=== PATIENT | male | born 1935 | race Caucasian/White ===

== ENCOUNTER 2024-04-18 14:56 | Emergency (ER) | payer MEDICARE ==
[~2024-04-18] VITALS: Ht 182.9 cm; Wt 88.5 kg
[2024-04-18 15:39] LABS: BASOPHILS # (AUTO) 0.05 K/uL (0.00-0.20); BASOPHILS % (AUTO) 0.2 % (0.0-5.0); EOSINOPHILS # (AUTO) 0.01 K/uL (0.00-0.70); HEMATOCRIT 34.6 % (42-54); IMMATURE GRANULOCYTE ABSOLUTE 0.15 K/uL (0-1); LYMPHOCYTES # (AUTO) 0.5 K/uL (1.0-4.8); LYMPHOCYTES % (AUTO) 2.2 % (21.0-51.0); MEAN CORPUSCULAR HGB CONC 35.5 g/dL (32.0-36.0); MEAN CORPUSCULAR VOLUME 92.8 fL (79-99); MONOCYTES # (AUTO) 0.8 K/uL (0.1-1.0); MONOCYTES % (AUTO) 3.5 % (3.0-13.0); NEUTROPHILS # (AUTO) 21.4 K/uL (1.8-7.7); NEUTROPHILS % (AUTO) 93.4 % (40.0-77.0); PLATELET COUNT (AUTO) 176 K/uL (130-400); RED BLOOD CELL COUNT(AUTO) 3.73 MIL/uL (4.50-6.20); RED CELL DISTRIBUTION WIDTH 13.1 % (11.0-15.5)
[2024-04-18] MEDS: 0.9%NACL 1000ML 1,000 ML IV ONE (15:40)
--- NOTE | 2024-04-18 15:41 | HMCIMG ---
PORTABLE CHEST RADIOGRAPH INDICATION: WEAKNESS COMPARISON: 05/10/2004 FINDINGS: radiation monitor leads overlie the field of view. Shallow inspiration. Heart size is normal. The pulmonary vascularity and yemi appear normal. No abnormal pulmonary parenchymal opacity or consolidation identified. No significant pleural effusion noted. No pneumothorax detected. IMPRESSION: Shallow inspiration without radiographic evidence for any acute cardiopulmonary process.
--- NOTE | 2024-04-18 15:44 | EKG ---
[facility] Test Date: 2024-04-18 Test Time: 15:36:59 Pat Name: NORMAN CAICEDO Department: ED Room: Gender: Flight Instructor: [id number] : 1935 Requested By: LINA WOODS Order Number: [id number] Reading MD: Alvin Mclaughlin Measurements Intervals [place] Rate: 76 P: -27 CA: 255 QRS: -3 QRSD: 92 T: 37 QT: 405 QTc: 454 Interpretive Statements Sinus rhythm Prolonged CA interval No previous ECG available for comparison Electronically Signed On 04-19-2024 12:02:03 BLENDING TANK HELPER by Alvin Mclaughlin Please click the below link to view image of tracing.
--- NOTE | 2024-04-18 15:48 | ERN ---
General Chief Complaint: Weakness Stated Complaint: WEAKNESS Time Seen by MD: 15:08 Source: patient History of Present Illness Initial Comments PATIENT IS A AN 89-YEAR-OLD MALE COMING IN TO BE EVALUATED FOR GENERALIZED BODY WEAKNESS COUGH. PATIENT STATES THAT HE HAS BEEN HAVING THIS WEAKNESS SINCE YESTERDAY. NO FEVER OR CHILLS. Allergies: Coded Allergies: No Known Drug Allergies (Unverified Allergy, Unknown, HIVES, 04/18/24) Home Meds Reported Medications Levothyroxine Sodium (Levothyroxine Sodium) 50 Mcg Tablet, 0.5 TAB PO QTUTHSA for 30 Days, #30 TAB 0 Refills 04/19/24 Levothyroxine Sodium (Levothyroxine) 50 Mcg Capsule, 1 CAP PO [id number] for 30 Days, #30 CAP 0 Refills 04/19/24 Flecainide Acetate (Flecainide Acetate) 100 Mg Tablet, 0.5 TAB PO BID for 30 Days, #60 TAB 0 Refills 04/19/24 Metoprolol Succinate (Metoprolol Succinate) 25 Mg Tab.er.24h, 0.5 TAB PO DAILY for 30 Days, #30 TAB 0 Refills 04/19/24 Lorazepam (Ativan) 0.5 Mg Tablet, 1 TAB PO [id number] PRN for anxiety for 30 Days, #60 TAB 0 Refills 04/19/24 Amlodipine Besylate (Amlodipine Besylate) 10 Mg Tablet, 1 TAB PO DAILY for 30 Days, #30 TAB 0 Refills 04/19/24 Sertraline HCl (Sertraline HCl) 25 Mg Tablet, 1 TAB PO DAILY for 30 Days, #30 TAB 0 Refills 04/19/24 Past Medical History Past Medical History: A-Fib, CAD, Diabetes-Type II, High Cholesterol, Hypertension Past Surgical History: Other Surgical History Other: L HIP REPLACEMENT ROS Dictation CONSTITUTIONAL: NO CHILLS, NO FEVER, NO WEAKNESS, NO DIAPHORESIS, NO MALAISE. HEAD/FACE: NO SIGNS OF TRAUMA. EENT: NO EYE PAIN, NO BLURRED VISION, NO TEARING, NO DOUBLE VISION, NO EAR PAIN, NO EAR DISCHARGE, NO NOSE PAIN, NO NASAL CONGESTION, NO THROAT PAIN, NO THROAT SWELLING, NO MOUTH PAIN. RESPIRATORY: NO COUGH, NO ORTHOPNEA, NO SOB, NO STRIDOR, NO WHEEZING. CARDIOVASCULAR: NO CHEST PAIN, NO EDEMA, NO PALPITATIONS, NO SYNCOPE. GASTROINTESTINAL/ABDOMINAL: NO ABDOMINAL PAIN, NO CONSTIPATION, NO DIARRHEA, NO NAUSEA, NO VOMITING. GENITOURINARY: NO ABNORMAL DISCHARGE, NO DYSURIA, NO FREQUENT URINATION, NO HEMATURIA. NO COMPLAINTS OF PAIN IN THE GENITALS. MUSCULOSKELETAL: NO BACK PAIN, NO GOUT, NO JOINT PAIN, NO JOINT SWELLING, NO MUSCLE PAIN, NO MUSCLE STIFFNESS, NO NECK PAIN. INTEGUMENTARY: NO CHANGE IN COLOR, NO CHANGE IN HAIR/NAILS, NO DRYNESS, NO LESION, NO LUMPS, NO RASH. NEUROLOGICAL/PSYCH: NO ANXIETY, NOT DEPRESSED, NO EMOTIONAL PROBLEM, NO HEADACHE, NO NUMBNESS, NO PRE-EXISTING DEFICIT, NO HISTORY OF SEIZURES, NO TREMORS, NO WEAKNESS. HEMATOLOGIC/LYMPHATIC: NOT ANEMIC, NO HISTORY OF BLOOD CLOTS, NO APPARENT BLEEDING, NO BRUISING, GLANDS NOT SWOLLEN. ALL SYSTEMS NEGATIVE, EXCEPT NOTED. Physical Exam Physical Exam Dictation VITAL SIGNS: REVIEWED. GENERAL APPEARANCE: ALERT, ORIENTED X3, NO ACUTE DISTRESS, OBESE. HEAD AND FACE: NON-TRAUMATIC. EYES: PERRL, PINK CONJUNCTIVAS, EYELID NO TRAUMA, ANTERIOR CHAMBER CLEAR. EARS: PINNAS INTACT AND NO SIGNS OF TRAUMA OR ERYTHEMA. EAR CANALS CLEAR AND NO DISCHARGE. TMS NO ERYTHEMA. NOSE: NO DISCHARGE, NO BLEEDING. OROPHARYNX: MOUTH NORMAL, TEETH NO CARIES, TONGUE PINK. PHARYNX CLEAR, NO ERYTHEMA. TONSILS NO EXUDATES, NO ABSCESSES NOTED. MUCOUS MEMBRANE MOIST. NECK: SUPPLE, NON-TENDER, NO THYROMEGALY, NO MASSES, NO JVD, NO BRUITS. BREAST: DEFERRED. CHEST: NO TENDERNESS, NO CREPITUS, NO PARADOXICAL MOVEMENT, NO RETRACTIONS. LUNGS: CLEAR, WELL-VENTILATED, SYMMETRIC, NO RALES, NO WHEEZING, NO RHONCHI, NO STRIDOR, GOOD BREATH SOUNDS BILATERALLY. HEART: REGULAR RATE, REGULAR RHYTHM, NO MURMUR, NO GALLOPS. VASCULAR: NO PERIPHERAL EDEMA. ABDOMEN: SOFT, POSITIVE BOWEL SOUNDS, NONDISTENDED, NO GUARDING, NONTENDER, NO REBOUND, NO MASSES NO HEPATOMEGALY, NO SPLENOMEGALY, NO PATEL'S SIGN, NO HERNIAS. RECTAL: DEFERRED. GENITAL: DEFERRED. NEUROLOGICAL: NORMAL SPEECH, GROSS MOTOR FUNCTION INTACT, GROSS SENSORY FUNCTION INTACT. MUSCULOSKELETAL: NECK NONTENDER, FULL RANGE OF MOTION, BACK NONTENDER, FULL RANGE OF MOTION. EXTREMITIES: NONTENDER, FULL RANGE OF MOTION. SKIN: COLOR PINK, DRY, NO TURGOR, NO RASH, NO LACERATIONS, NO ABRASIONS, NO CONTUSIONS. LYMPHATICS: DEFERRED. Results Laboratory and Microbiology Lab and Micro Result Laboratory Tests Test 04/18/24 15:31 04/18/24 15:40 04/18/24 17:30 04/18/24 17:36 White Blood Count 23.0 K/uL (4.8-10.8) H Red Blood Count 3.73 MIL/uL (4.50-6.20) L Hemoglobin 12.3 g/dL (14.0-18.0) L Hematocrit 34.6 % (42-54) L Mean Corpuscular Volume 92.8 fL (79-99) Mean Corpuscular Hemoglobin 33.0 pg (27.0-33.0) Mean Corpuscular Hemoglobin Concent 35.5 g/dL (32.0-36.0) Red Cell Distribution Width 13.1 % (11.0-15.5) Platelet Count 176 K/uL (130-400) Mean Platelet Volume 8.5 fL (7.5-10.5) Immature Granulocyte % (Auto) 0.7 % (0-1) Neutrophils (%) (Auto) 93.4 % (40.0-77.0) H Lymphocytes (%) (Auto) 2.2 % (21.0-51.0) L Monocytes (%) (Auto) 3.5 % (3.0-13.0) Eosinophils (%) (Auto) 0.0 % (0.0-8.0) Basophils (%) (Auto) 0.2 % (0.0-5.0) Neutrophils # (Auto) 21.4 K/uL (1.8-7.7) H Lymphocytes # (Auto) 0.5 K/uL (1.0-4.8) L Monocytes # (Auto) 0.8 K/uL (0.1-1.0) Eosinophils # (Auto) 0.01 K/uL (0.00-0.70) Basophils # (Auto) 0.05 K/uL (0.00-0.20) Absolute Immature Granulocyte (auto 0.15 K/uL (0-1) Nucleated Red Blood Cells 0.0 % (0.0-0.19) White Cell Morphology Comment See comments Erythrocyte Sedimentation Rate 22 MM/HR (0-20) H Prothrombin Time 18.1 SEC (9.6-11.6) H Prothromb Time International Ratio 1.81 (0.85-1.15) H Activated Partial Thromboplast Time 41.9 SEC (26.3-35.5) H Sodium Level 126 mmol/L (136-145) L Potassium Level 3.8 mmol/L (3.5-5.1) Chloride Level 93 mmol/L (101-111) L Carbon Dioxide Level 26 mmol/L (21-32) Blood Urea Nitrogen 15 mg/dL (7-18) Creatinine 1.0 mg/dL (0.5-1.3) Glomerular Filtration Rate Calc 72 mL/min (>90) Random Glucose 123 mg/dL (70-105) H Total Calcium 8.1 mg/dL (8.5-10.1) L Magnesium Level 1.50 mg/dL (1.80-2.40) L Total Creatine Kinase 97 U/L (21-232) Troponin I High Sensitivity 12.1 ng/L (4-75) C-Reactive Protein, Quantitative 88.90 mg/L (0.5-3.0) H B-Type Natriuretic Peptide 646 pg/mL (0-100) H Influenza Type A Antigen Negative For Type A Influenza Type B Antigen Negative For Type B SARS-CoV-2, RNA, NAAT NEGATIVE SARS CoV-2 Urine Color YELLOW (YELLOW) Urine Appearance CLEAR (CLEAR) Urine pH 6.0 (5.0-8.0) Urine Specific Crane 1.021 (1.001-1.031) Urine Protein 10 mg/dL (NEGATIVE) H Urine Glucose (UA) NEGATIVE mg/dL (NEGATIVE) Urine Ketones NEGATIVE mg/dL (NEGATIVE) Urine Occult Blood NEGATIVE (NEGATIVE) Urine Nitrate NEGATIVE (NEGATIVE) Urine Bilirubin NEGATIVE mg/dL (NEGATIVE) Urine Urobilinogen 3 mg/dL (0.2-1.0) H Urine Leukocyte Esterase NEGATIVE Jesus/uL Urine RBC 2-5 /HPF (0-1) H Urine WBC 2-5 /HPF (0-1) H Urine Squamous Epithelial Cells RARE /HPF (0-2) Urine Bacteria RARE /HPF (None Seen) Lactic Acid Level 1.5 mmol/L (0.8-2.5) Test 04/19/24 07:21 04/20/24 09:07 White Blood Count 15.9 K/uL (4.8-10.8) #H Red Blood Count 3.46 MIL/uL (4.50-6.20) L Hemoglobin 11.4 g/dL (14.0-18.0) L Hematocrit 33.0 % (42-54) L Mean Corpuscular Volume 95.4 fL (79-99) Mean Corpuscular Hemoglobin 32.9 pg (27.0-33.0) Mean Corpuscular Hemoglobin Concent 34.5 g/dL (32.0-36.0) Red Cell Distribution Width 13.7 % (11.0-15.5) Platelet Count 159 K/uL (130-400) Mean Platelet Volume 8.5 fL (7.5-10.5) Immature Granulocyte % (Auto) 0.5 % (0-1) Neutrophils (%) (Auto) 88.4 % (40.0-77.0) H Lymphocytes (%) (Auto) 5.7 % (21.0-51.0) L Monocytes (%) (Auto) 5.1 % (3.0-13.0) Eosinophils (%) (Auto) 0.0 % (0.0-8.0) Basophils (%) (Auto) 0.3 % (0.0-5.0) Neutrophils # (Auto) 14.1 K/uL (1.8-7.7) H Lymphocytes # (Auto) 0.9 K/uL (1.0-4.8) L Monocytes # (Auto) 0.8 K/uL (0.1-1.0) Eosinophils # (Auto) 0.00 K/uL (0.00-0.70) Basophils # (Auto) 0.04 K/uL (0.00-0.20) Absolute Immature Granulocyte (auto 0.08 K/uL (0-1) Nucleated Red Blood Cells 0.0 % (0.0-0.19) Sodium Level 129 mmol/L (136-145) L Potassium Level 3.5 mmol/L (3.5-5.1) Chloride Level 99 mmol/L (101-111) L Carbon Dioxide Level 24 mmol/L (21-32) Blood Urea Nitrogen 17 mg/dL (7-18) Creatinine 0.8 mg/dL (0.5-1.3) Glomerular Filtration Rate Calc 85 mL/min (>90) Random Glucose 113 mg/dL (70-105) H Total Calcium 7.5 mg/dL (8.5-10.1) L Magnesium Level 1.70 mg/dL (1.80-2.40) L Vancomycin Level Trough 14.6 UG/ML (10.0-20.0) Labs Reviewed?: Yes EKG/XRAY/US/CT/MRI EKG Comment 04/19/2019 TIME 1:59 P.M. VENTRICULAR RATE [address] WAVE ELEVATION OR DEPRESSION CT Scan Comment PATIENT: NORMAN CAICEDO MR#: [id number] : 1935 SEX: M AGE: 89 LOCATION: [facility] ORDER 39 STATUS: REG REPORT#: [id number] SERVICE 37 REASON: Left hip post op abscess ORDERING PHYSICIAN: PHILLIP LI MD PROCEDURE: PELVIS WO - CT PELVIS W/O CONTRAST CT PELVIS W/O CONTRAST HISTORY: Left hip post op abscess TECHNIQUE: CT pelvis was performed without contrast. Coronal and sagittal reformats were obtained. CT was performed with one or more of the following dose reduction techniques: Automated exposure control, adjustment of the mA and/or kV according to the patient's size, or use of the iterative reconstruction technique. FINDINGS: This study is markedly degraded due to streak artifact from the left hip prosthesis. No displaced fracture or dislocation is seen. Left hip prosthesis in anatomic alignment. There is diffuse soft tissue swelling surrounding the left hip. No definite fluid collection is identified. There is no soft tissue gas. Correlate clinically. IMPRESSION: This study is markedly degraded due to streak artifact from the left hip prosthesis. No acute displaced fracture or dislocation is seen. Left hip prosthesis in anatomic alignment. There is diffuse soft tissue swelling surrounding the left hip. No definite fluid collection is identified. There is no soft tissue gas. Correlate clinically. DICTATED BY: FINA WRIGHT MD DATE: 04/18/242031 ELECTRONICALLY SIGNED BY: FINA WRIGHT MD DATE: 04/18/242035 MDM MDM: DIFFERENTIAL DIAGNOSIS: TAKE JOINT, PROSTHESIS RATIONALE: TESTS CONSIDERED AND ORDERED SECONDARY TO SHARED DECISION MAKING INCLUDE: PREVIOUS OUTSIDE RECORDS REVIEWED: OLD ER VISITS. RISK OF COMPLICATION AND/OR MORBIDITY OR MORTALITY OF PATIENT MANAGEMENT: NONE MEDICATIONS-PER MEDICATION RECONCILIATION NEED FOR HOSPITALIZATION: PATIENT DOES MEET CRITERIA FOR HOSPITALIZATION. NEED FOR EMERGENCY MAJOR/MINOR SURGERY: NO THERE ARE NO SOCIAL CONCERNS WITH THIS PATIENT. PRESCRIPTION DRUG MANAGEMENT PRESCRIPTIONS WILL INCLUDE SYMPTOMATIC CARE PATIENT'S PRIOR EXTERNAL MEDICAL RECORDS FROM OTHER ER VISITS WERE REVIEWED BY ME INDICATED. PRIOR TESTING AND RESULTS FROM PREVIOUS VISITS WERE REVIEWED. PRIOR TESTS WERE TAKEN INTO ACCOUNT WITH MEDICAL DECISION MAKING AND RESOURCE UTILIZATION, INDEPENDENT HISTORIAN/HISTORIANS WERE USED TO OBTAIN COMPLETE MEDICAL HISTORY. I INDEPENDENTLY INTERPRETED THE TEST THAT WERE PERFORMED, RESULTS WERE REVIEWED BY ME AND CONSIDERED FINDINGS ON RADIOLOGY IF ORDERED. MEDICAL MANAGEMENT AND EXAMINATION INTERPRETATION DISCUSSIONS WERE HAD BY ME WITH OTHER QUALIFIED HEALTHCARE PROFESSIONALS INDICATED FOR THE PATIENT'S CARE. PATIENT IS A AN 89-YEAR-OLD GENTLEMAN COMING IN TO BE EVALUATED FOR MULTIPLE COMPLAINTS. PATIENT STATES THAT HE DID HAVE LEFT HIP PAIN HE HAD SURGERY IN [facility]. PER PATIENT HE HAS BEEN HAVING SOME HIP DISCOMFORT FOR A COUPLE OF DAYS SHE WAS FOR FURTHER EVALUATION LABORATORY WORKUP POSITIVE FOR SEPSIS. WHITE BLOOD CELL COUNT ELEVATED. C-REACTIVE PROTEIN ELEVATED. SPOKE TO DR. RENEE THE ON-CALL LINEN WORKER HE STATES HE CAN NOT OPERATE ON THIS TYPE OF PATIENT AND STATES IT WAS BEST TO TRANSFER HIM OUT. DR. RENEE IS ALSO [facility] SO STATES THAT WE CAN NOT TRANSFER HIM THERE THE RESULT WILL BE THE SAME. ED Course Orders Procedure Category Date Status Time Cbc With Differential LAB 04/18/24 Complete 15:17 Prothrombin Time With LAB 04/18/24 Complete INR 15:17 B-Type Natriuretic LAB 04/18/24 Complete Peptide 15:17 Chest 1vw RAD 04/18/24 Resulted 15:17 12 Lead Ekg Tracing- EKG 04/18/24 Resulted Technical 15:17 0.9%Nacl 1000ml (Ns PHA 04/18/24 Complete 1000ml) 15:30 Magnesium LAB 04/18/24 Complete 15:17 Urinalysis Profile LAB 04/18/24 Complete 15:17 Partial LAB 04/18/24 Complete Thromboplastin Time 15:17 Basic Metabolic Panel LAB 04/18/24 Complete 15:17 Covid Rna Naat LAB 04/18/24 Complete 15:17 Influenza Type A & B, LAB 04/18/24 Complete Rapid 15:17 Cardiac Panel LAB 04/18/24 Complete 15:31 Blood Cult YUVAL 04/18/24 In Process 16:52 Culture Urine YUVAL 04/18/24 Complete 16:52 0.9%Nacl 1000ml (Ns PHA 04/18/24 Complete 1000ml) 17:00 Lactic Acid LAB 04/18/24 Complete 16:52 Ceftriaxone 1g Vial PHA 04/18/24 Complete (Rocephine 1g Inj) 17:00 Acetaminophen 325 Tab PHA 04/18/24 Complete (Tylenol 325mg Tab 18:30 Acetaminophen 325 Tab PHA 04/18/24 Complete (Tylenol 325mg Tab 18:12 Hip Unilat 2-3vw Left RAD 04/18/24 Resulted 18:12 Vancomycin Protocol PHA 04/18/24 Complete (Vancomycin Protocol 18:30 Vancomycin 1g/250ml PHA 04/18/24 Complete Kit (Vancomycin 1g/2 18:30 Erythrocyte LAB 04/18/24 Complete Sedimentation Rate 18:14 Crp Quantitative LAB 04/18/24 Complete 18:14 Vancomycin Trough LAB 04/20/24 Complete 08:00 Vancomycin 500mg+Ns PHA 04/19/24 Complete 100ml (Vancomycin 50 09:00 Ct Pelvis W/O Contrast CT 04/18/24 Resulted 19:38 Ibuprofen 600 Mg PHA 04/18/24 Complete Tablet (Motrin) 20:30 0.9% Nacl 500ml PHA 04/19/24 Complete Iv.Soln (Ns 500ml 01:30 Enoxaparin Sodium 100 PHA 04/19/24 Complete Mg/1 Ml (Lovenox) 02:00 Cbc With Differential LAB 04/19/24 Complete 07:00 Basic Metabolic Panel LAB 04/19/24 Complete 07:00 Magnesium LAB 04/19/24 Complete 07:00 Zolpidem Tartrate 5 PHA 04/20/24 Complete Mg Tab (Ambien) 00:30 Current Medications Medications (Trade) Dose Ordered Sig/Greg Route PRN Reason Start Time Stop Time Status Last Admin Dose Admin Zolpidem Tartrate (AmbIEN) 10 mg ONCE ONCE PO 04/20/24 00:30 04/20/24 00:31 DC 04/20/24 00:51 Vital Signs Date Time Temp Pulse Resp B/P (MAP) Pulse Ox O2 Delivery O2 Flow Rate FiO2 04/20/24 08:42 98.8 76 17 122/77 93 Room Air* 0 04/20/24 06:31 98.8 72 18 111/55 95 Room Air* 0 04/20/24 03:24 68 18 115/53 94 Room Air* 0 04/19/24 23:08 98.8 64 20 122/58 96 Room Air* 0 04/19/24 20:05 98.6 83 20 112/52 96 Room Air* 0 04/19/24 18:52 98.1 90 20 110/50 96 Room Air* 0 04/19/24 17:41 98.1 88 20 108/49 95 Room Air* 0 04/19/24 15:13 98.2 88 20 121/57 95 Room Air* 0 04/19/24 10:25 98.1 60 16 96 Room Air* 0 04/19/24 06:24 57 16 107/57 94 Room Air* 0 04/19/24 05:45 98.1 56 18 105/55 94 Room Air* 0 04/19/24 04:32 58 16 97/45 96 Room Air* 0 04/19/24 03:02 55 16 92/50 94 Room Air* 0 04/19/24 02:25 97.2 56 18 91/49 94 Room Air* 0 04/19/24 00:56 58 18 86/47 94 Room Air* 0 04/19/24 00:12 99.0 56 18 95/50 Room Air* 0 04/18/24 20:37 101.5 04/18/24 20:18 101.5 70 20 100/41 92 Room Air* 0 04/18/24 18:13 99.7 78 18 115/51 95 Room Air* 0 04/18/24 16:57 98.2 70 18 102/51 96 Room Air* 0 04/18/24 14:59 79 18 102/48 96 Room Air 0 04/18/2024 7:00 p.m. patient was signed out to me by a.m. physician. I independently evaluated patient 89-year-old male who is a winter [place], came into the emergency room complaining of generalized weakness and left hip pain. Initial presentation was quite innocuous with normal temperatures blood pressure was 102/51 and labs and workup was essentially significant for a leukocytosis and septic picture lactate was 1.5. BNP 7 was significant for a sodium of 126 BUN and creatinine are 15 and 1.0. CRP was 88.9 and magnesium was 1.5. Urinalysis was unremarkable and with a suspicion for left hip septic arthritis due to ongoing pain and redness and local erythema, the a.m. physician has initiated ceftriaxone. Left trochanteric area is tender to deep palpation and it is definitely swollen and warm to touch. His chronic medical problems include coronary artery disease, diabetes mellitus, hypercholesterolemia, hypertension, atrial fibrillation and history of left hip replacement a few months ago in [place]. Transfer to a facility with orthopedic surgeons comfortable with postop septic arthritis is been pursued. mixing place supervisor is making efforts. I requested a CT scan of the pelvis with focus on the left hip area to better evaluate if there is any abscess. CT scan revealed soft tissue swelling around the left hip but no obvious discernible fluid collection. Patient is currently on antibiotics and pain medications. 3:19 a.m. assisted living housekeeper informed that 9 facilities in the [place] have been approached and are unable to take the patient either because they are at full capacity or are unable to accommodate him. mixing place supervisor is attempting to pursue facility in [place] 04/19/2024 7:00 p.m.-all day this morning efforts to dispo the patient have been in progress and patient has not been accepted by any facility for management of complicated left hip septic arthritis. He is on Rocephin and vancomycin and pain medications mixing place supervisor informed me that transfer initiated back to his hometown and there is no likely possibility of him going anywhere if any until Sunday but patient is still on waiting list without any confirmation of bed availability or accepting physician. Patient remained in the ER and received the IV antibiotic therapy and pain management. Family decided to take him back to [facility] where he had his surgery done and they made arrangements on their own and did not want to wait until an official transfer arrangements could be done. Patient received the last antibiotic dose before leaving. Patient was alert awake ambulatory. DX & DISP Disposition: Discharge Departure Impression: Primary Impression: Septic joint Additional Impressions: Sepsis, History of total left hip replacement Condition: Stable Additional Instructions: The patient has been informed about all the diagnostic tests and procedures carried out in the emergency room today and has confirmed understanding of the results. Patient will be transferred to a facility that provides a higher level of care since such services are not accessible locally or within our immediate community. The patient is alert oriented and not experiencing any acute distress. There are no signs of sepsis and patient's hemodynamic status is stable at the moment. Medically, the patient is considered stable for transfer Referrals: SELF,REFERRAL (PCP) LINA WOODS MD Apr 18, 2024 15:48 PHILLIP LI MD Apr 19, 2024 01:06
[2024-04-18 16:11] LABS: B-TYPE NATRIURETIC PEPTIDE 646 pg/mL (0-100)
[2024-04-18 16:12] LABS: POTASSIUM 3.8 mmol/L (3.5-5.1)
[2024-04-18 16:12] LABS: SARS-CoV-2, RNA, NAAT NEGATIVE SARS CoV-2 (NEGATIVE)
[2024-04-18 16:15] LABS: INFLUENZA TYPE A Negative For Type A (NEGATIVE); INFLUENZA TYPE B Negative For Type B (NEGATIVE)
[2024-04-18 16:22] LABS: MAGNESIUM 1.5 mg/dL (1.80-2.40)
[2024-04-18 16:39] LABS: INR 1.81 (0.85-1.15); PROTHROMBIN TIME 18.1 SEC (9.6-11.6)
[2024-04-18 16:41] LABS: PARTIAL THROMBOPLASTIN TIME 41.9 SEC (26.3-35.5)
[2024-04-18] MEDS: cefTRIAXone 1G VIAL IVPB SCH (17:45)
[2024-04-18] MEDS: [UNRECOGNIZED DRUG - OTHER] IV SCH (17:45)
[2024-04-18 17:52] LABS: APPEARANCE,URINE CLEAR (CLEAR); BILIRUBIN,URINE NEGATIVE (NEGATIVE); COLOR,URINE YELLOW (YELLOW); GLUCOSE, URINE (UA) NEGATIVE (NEGATIVE); KETONES,URINE NEGATIVE (NEGATIVE); LEUKOCYTE ESTERASE ,URINE NEGATIVE Leu/uL (NEGATIVE); NITRATE,URINE NEGATIVE (NEGATIVE); OCCULT BLOOD,URINE NEGATIVE (NEGATIVE); PROTEIN,URINE 10 mg/dL (NEGATIVE); UROBILINOGEN,URINE 3 mg/dL (0.2-1.0)
[2024-04-18 17:55] LABS: ADD UA MICROSCOPIC YES
[2024-04-18 17:57] LABS: BACTERIA,URINE RARE /HPF (None Seen); MUCUS,URINE RARE LPF (None Seen); SQUAMOUS EPITHELIAL CELL,UR RARE /HPF (0-2)
[2024-04-18] MEDS: acetaMINOPHEN 325 MG TAB PO SCH (18:21)
[2024-04-18] MEDS: acetaMINOPHEN 325 MG TAB ONE (18:22)
[2024-04-18] MEDS: VANCOMYCIN KIT 1 GM/250 ML IV.KIT IV SCH (18:25)
[2024-04-18] MEDS ORDERED: VANCOMYCIN PROTOCOL PER PHARMACY IV SCH (18:30)
--- NOTE | 2024-04-18 18:57 | HMCIMG ---
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 Right femoral head is well formed without osteochondral erosion or radiographic evidence for avascular necrosis. Normal appearance of total left hip prosthesis without radiographic evidence for loosening or infection.
--- NOTE | 2024-04-18 19:16 | NUR ---
TRANSFER CHILDREN'S COUNSELOR NOTIFIED OF NEED TO TRANSFER PATIENT, DX: SEPTIC JOINT-PROSTHESIS L HIP. PATIENT ADVISES ORIGINAL SURGERY WAS PERFORMED IN [facility], PER DR WOODS, PATIENT WAS REFUSED BY DR HU Addendum: 04/18/24 at 2027 by ANN MARIE SURGERY WAS PERFORMED IN [facility]
--- NOTE | 2024-04-18 19:50 | NUR ---
TRANSFER CALL PLACED TO [facility] TO INITIATE TRANSFER. [facility] ELECTRONICS ASSEMBLER DECLINED AND STATED THAT HE WAS ELECTRONICS ASSEMBLER [place] [facility] [place]OULD DECLINE THEIR WELL. WHILE IN THE MIDDLE OF SHARING INFORMATION WITH THE STRAWHAT SIZER, IT WAS BROUGTH TO MY ATTENTION THAT THE RIM FIRE PRIMING TOOL SETTER ER PHYSICIAN WAS ORDERING A CT OF THE HIP. TRANSFER ON HOLD AT THIS MOMENT
--- NOTE | 2024-04-18 20:36 | HMCIMG ---
CT PELVIS W/O CONTRAST HISTORY: Left hip post op abscess TECHNIQUE: CT pelvis was performed without contrast. Coronal and sagittal reformats were obtained. CT was performed with one or more of the following dose reduction techniques: Automated exposure control, adjustment of the mA and/or kV according to the patient's size, or use of the iterative reconstruction technique. FINDINGS: This study is markedly degraded due to streak artifact from the left hip prosthesis. No displaced fracture or dislocation is seen. Left hip prosthesis in anatomic alignment. There is diffuse soft tissue swelling surrounding the left hip. No definite fluid collection is identified. There is no soft tissue gas. Correlate clinically. IMPRESSION: This study is markedly degraded due to streak artifact from the left hip prosthesis. No acute displaced fracture or dislocation is seen. Left hip prosthesis in anatomic alignment. There is diffuse soft tissue swelling surrounding the left hip. No definite fluid collection is identified. There is no soft tissue gas. Correlate clinically.
[2024-04-18] MEDS: ibuPROFEN 600 MG TABLET PO ONE (20:37)
[2024-04-18 21:25] VITALS: TEMP 100.5
--- NOTE | 2024-04-18 21:38 | NUR ---
TRANSFER PERTINENT INFORMATION FAXED TO [facility] REQUESTED
--- NOTE | 2024-04-18 22:34 | NUR ---
TRANSFER [facility] CORNICE MAKER HAS CALLED BACK STATING THAT THIS ISSUE IS OUT OF THE SCOPE OF PRACTICE FOR THEIR ORTHO SURGEON HEMATOLOGY SUPERVISOR THIS EVENING. TRANSFER DENIED
--- NOTE | 2024-04-19 01:06 | NUR ---
TRANSFER CALL PLACED TO [facility] TWISTER TO INITIATE TRANSFER FOR ORTHOPEDIC SERVICES.
[2024-04-19] MEDS: 0.9% NACL 500ML IV.SOLN 500 ML IV ONE (01:24)
--- NOTE | 2024-04-19 01:30 | NUR ---
TRANSFER [facility] DYE RANGE FEEDER HAS CALLED BACK STATING THAT BOTH [facility] AND [facility] ARE AT CAPACITY. PT. TRANSFER DENIED.
--- NOTE | 2024-04-19 01:31 | NUR ---
TRANSFER CALL PLACED TO [facility] RESOURCE TECH TO INITIATE ORTHOPEDIC CASE TO [place]
[2024-04-19] MEDS ORDERED: SERT-438 PO (01:51)
[2024-04-19] MEDS ORDERED: FLEC100T3 PO (01:51)
[2024-04-19] MEDS ORDERED: LEVO50CA4 PO (01:51)
[2024-04-19] MEDS ORDERED: LORA0.5T83 PO (01:51)
[2024-04-19] MEDS ORDERED: LEVO50TA11 PO (01:51)
[2024-04-19] MEDS ORDERED: METO-408 PO (01:51)
[2024-04-19] MEDS ORDERED: AMLO-258 PO (01:51)
--- NOTE | 2024-04-19 01:59 | NUR ---
TRANSFER [employer]EN[employer] FIELD MARKETING MANAGER HAS CALLED BACK. PT. DENIED THIS IS OUT OF SCOPE OF PRACTICE FOR ORTHOPEDIC SURGEON
--- NOTE | 2024-04-19 02:21 | NUR ---
TRANSFER CALL PLACED TO [facility] THEATRE DIRECTOR TO INITIATE TRANSFER FOR ORTHOPEDIC SERVICES
--- NOTE | 2024-04-19 02:50 | NUR ---
TRANSFER [facility] HAS CALLED BACK DENYING TRANSFER TO [facility]. THE PATIENT'S NEEDS ARE OUT OF THE SCOPE OF PRACTICE FOR THE ORTHOPEDIC SURGEON SALT WASHER
[2024-04-19] MEDS: ENOXAPARIN SODIUM 100 MG/1 ML SQ ONE (03:02)
[2024-04-19 07:36] LABS: BASOPHILS # (AUTO) 0.04 K/uL (0.00-0.20); BASOPHILS % (AUTO) 0.3 % (0.0-5.0); IMMATURE GRANULOCYTE ABSOLUTE 0.08 K/uL (0-1); LYMPHOCYTES # (AUTO) 0.9 K/uL (1.0-4.8); LYMPHOCYTES % (AUTO) 5.7 % (21.0-51.0); MEAN CORPUSCULAR HEMOGLOBIN 32.9 pg (27.0-33.0); MEAN CORPUSCULAR HGB CONC 34.5 g/dL (32.0-36.0); MEAN CORPUSCULAR VOLUME 95.4 fL (79-99); MONOCYTES # (AUTO) 0.8 K/uL (0.1-1.0); MONOCYTES % (AUTO) 5.1 % (3.0-13.0); NEUTROPHILS # (AUTO) 14.1 K/uL (1.8-7.7); NEUTROPHILS % (AUTO) 88.4 % (40.0-77.0); PLATELET COUNT (AUTO) 159 K/uL (130-400); RED BLOOD CELL COUNT(AUTO) 3.46 MIL/uL (4.50-6.20); RED CELL DISTRIBUTION WIDTH 13.7 % (11.0-15.5); WHITE BLOOD COUNT (AUTO) 15.9 K/uL (4.8-10.8)
[2024-04-19 08:00] LABS: CREATININE 0.8 mg/dL (0.5-1.3); MAGNESIUM 1.7 mg/dL (1.80-2.40); POTASSIUM 3.5 mmol/L (3.5-5.1)
[2024-04-19] MEDS: VANCOMYCIN 500MG+NS 100ML 100 ML IV SCH (09:14)
--- NOTE | 2024-04-19 10:46 | NUR ---
PATIENT VERBALIZES HIS INTENT TO LEAVE AMA. SN PROVIDES PATIENT EDUCATION. PATIENT VERBALIZES UNDERSTANDING. PATIENT IN NEUROLOGICALLY INTACT AAOX4 WITHOUT DEFICETS WITH FAMILY AT BEDSIDE. PATIENT STATES HE WOULD LIKE TO LEAVE AFTER HIS ABX ADMINISTRATION.
--- NOTE | 2024-04-19 12:30 | NUR ---
TRANSFER MET WITH PT AND SPOUSE INFROMATION OF [facility] [phone] OBTAINED. INFROM CALL WILL BE PLACE TO INITIATATE THE TRANSFER BOTH VERBALIZED UNDERSTANDING. MISTY VÁSQUEZ
--- NOTE | 2024-04-19 12:40 | NUR ---
TRANSFER CALL PLACE TO [phone] SPOKE WITH OSBALDO INTAKE MULTI SPINDLE OPERATOR INFORMATION PROVIDED. WILL CALL BACK. MISTY VÁSQUEZ
--- NOTE | 2024-04-19 13:10 | NUR ---
TRANSFER [facility] REQUESTING IMAGING TO BE PUSH TO HER RADIALOGY DEPARTMENT, SPOKE TO OUR DEPARTMENT AT UNABLE TO PUSH IMAGING. MISTY VÁSQUEZ
--- NOTE | 2024-04-19 13:30 | NUR ---
TRANSFER [facility] INFORM OF OUR IR UNABLE TO PUSH IMAGINGS. SO SHE REQUESTED FOR REPORTS TO BE FAX TO [phone]. [facility] DIRECT LINE IS [phone].
--- NOTE | 2024-04-19 13:30 | NUR ---
TRANSFER [facility] CALL STATING SHE WILL HAVE TO RECEIVED ACCOUNTS COLLECTOR APPROVAL FOR THE TRANSFER WILL CALL BACK. PT AND PRIMARY NURSE MADE AWARE. MISTY VÁSQUEZ
--- NOTE | 2024-04-19 16:15 | NUR ---
TRANSFER CALL BACK [employer] WORKING WITH [facility] STATES THEY ARE STILL WORKING THE LEGISTICS OF THE TRANSFER . PT AND PRIMARY NURSE MADE AWARE. MISTY VÁSQUEZ
--- NOTE | 2024-04-19 19:20 | NUR ---
TRANSFER CALL PLACE FOR FOLLOW UP PER INTAKE NURSE PT IS PLACE ON A WAITING LIST UNTIL SUNDAY FOR FUTHER EVALUATION OF THE CASE PER ADMINISTRATION. INCOMING HS AWARE, AND PT WILL BE NOTIFIED .MISTY VÁSQUEZ
--- NOTE | 2024-04-19 20:48 | NUR ---
PATIENT ALERT AND ORIENTED X4, STATED HE WOULD LIKE TO LEAVE THE HOSPITAL AGAINST MEDICAL ADVICE. PATIENT'S AT BEDSIDE. PATIENT AND PATIENT'S WERE EDUCATED ABOUT THE RISKS AND CONSEQUENCES, INCLUDING , INVOLVED IN LEAVING THE HOSPITAL AT THIS TIME, THE BENEFITS OF CONTINUED TREATMEANT OF HOSPITLIZATION AND ALTERNATIVES, BOTH PATIENT AND PATIENT'S VERBALIZED UNDERSTANDING. ED MD MADE AWARE.
--- NOTE | 2024-04-19 20:52 | NUR ---
DR. LI AT BEDSIDE, WITH PATIENT'S AND DAUGHTER AT THIS TIME
--- NOTE | 2024-04-19 21:15 | NUR ---
PATIENT TRANSFERED TO HOSPITAL BED
[2024-04-20] MEDS: ZOLPidem TARTrate 5 MG TAB PO ONE (00:51)
--- NOTE | 2024-04-20 07:59 | NUR ---
IMAGING CD MADE. PRIOR CD MADE ON 04/18/24 FOR TRANSFER, PER MILK DELIVERY DRIVER, CD WAS GIVEN TO PATIENT.
[2024-04-20 08:42] VITALS: BP 122/77; PULSE 76; RESP 17; TEMP 98.8; O2SAT 93
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
--- NOTE | 2024-04-20 11:08 | NUR ---
DR CUELLO NOTIFIED OF AMA 1105. CD GIVEN TO .
== END 2024-04-20 10:40 | disposition left against medical advice (07) ==
LOC: EDH 14:56
DX: A41.9 Sepsis, unspecified organism (principal); M00.9 Pyogenic arthritis, unspecified; E11.9 Type 2 diabetes mellitus without complications; E78.00 Pure hypercholesterolemia, unspecified; I10 Essential (primary) hypertension; I25.10 Atherosclerotic heart disease of native coronary artery without angina pectoris; Z20.822 Contact with and (suspected) exposure to COVID-19; Z79.899 Other long term (current) drug therapy; Z96.642 Presence of left artificial hip joint
CPT/HCPCS: 99285; 96365; 72192; 71045; 87635; 96361; 96375; 80202; 82550; 83735 ×2; 84484; 80048 ×2; 83880; 85025 ×2; 85610; 85730; 85651; 87040 ×2; 87086; 87804 ×2; 83605; 86140; 81001; 73502; 93005; 96366 ×2; 96372; 36415 ×3; J7030 ×2; J0696; J3370 ×4; J1650